=== PATIENT | female | born 1995 | race Caucasian/White ===

== ENCOUNTER 2020-04-02 11:46 | Outpatient (CLI) | payer OTHER ==
[2020-04-02 12:20] VITALS: BP 111/71
[2020-04-02 12:36] LABS: MICROSCOPIC INDICATED
== END 2020-04-02 13:48 | disposition home or self-care (01) ==
LOC: LDOP 11:46
PROVIDERS: ATTEND Obstetrics & Gynecology
DX: O23.40 Unspecified infection of urinary tract in pregnancy, unspecified trimester (principal)
CPT/HCPCS: 81001; 87086; 99211; G0463

== ENCOUNTER 2020-05-04 10:38 | Emergency (ER) | payer OTHER ==
[~2020-05-04] VITALS: Ht 162.6 cm; Wt 67.2 kg
[2020-05-04 11:06] VITALS: BP 114/61
--- NOTE | 2020-05-04 11:20 | NUR ---
BUTT PRESSER: L&D NOTIFIED, SPOKE WITH BRENTON GALLEGOS
--- NOTE | 2020-05-04 12:15 | NUR ---
CALLED L&D, BRENTON GANN TO PUT NOTE IN. WILL UPDATE ERMD
--- NOTE | 2020-05-04 13:19 | NUR ---
TASK RN: Patient/Caregiver given discharge instructions and they have confirmed that they understand the instructions. Patient ambulatory with steady gait.
== END 2020-05-04 13:20 | disposition home or self-care (01) ==
LOC: ED 12:19
DX: O26.892 Other specified pregnancy related conditions, second trimester (principal); M25.511 Pain in right shoulder; Z3A.27 27 weeks gestation of pregnancy
CPT/HCPCS: 99283

== ENCOUNTER 2020-08-03 14:10 | Inpatient (IN) | payer OTHER ==
[~2020-08-03] VITALS: Ht 162.6 cm; Wt 80.2 kg
[2020-08-03 20:26] LABS: BASOPHILS % (AUTO) 1 % (0-1); EOSINOPHILS % (AUTO) 1 % (1-7); LYMPHOCYTES % (AUTO) 16 % (22-44); MEAN CORPUSCULAR HEMOGLOBIN 32.9 pg (27.0-34.8); MEAN CORPUSCULAR HGB CONC 34.1 g/dL (32.4-35.8); MEAN PLATELET VOLUME 8.6 fL (7.4-10.4); MONOCYTES % (AUTO) 6 % (2-9); NEUTROPHILS % (AUTO) 76 % (42-75); PLATELET COUNT 223 x10^3/uL (130-400); RED BLOOD COUNT 3.79 x10^6/uL (3.82-5.3); RED CELL DISTRIBUTION WIDTH 13.7 % (9.6-15.2)
[2020-08-03 20:27] LABS: MD NO
[2020-08-03] MEDS ORDERED: D5%-LACTATED RINGERS 1,000 ML IV SCH (20:30)
[2020-08-03] MEDS ORDERED: ALUMINUM/MAG/SIMETHICONE 30 ML UDC PO PRN (20:30)
[2020-08-03] MEDS ORDERED: SODIUM CITRATE/CITRIC ACID 30 ML UDC PO PRN ×2 (20:30→22:30)
[2020-08-03] MEDS ORDERED: ONDANSETRON 2MG/ML, 2ML IVPush PRN (20:30)
[2020-08-03] MEDS ORDERED: METOCLOPRAMIDE 5 MG/ML, 2ML IVPush PRN (20:30)
[2020-08-03] MEDS ORDERED: FENTANYL PF 100 MCG/2ML IV PRN (20:30)
[2020-08-03] MEDS ORDERED: SODIUM CHLORIDE FLUSH 10ML SYR IVF PRN (20:30)
[2020-08-03] MEDS ORDERED: CALCIUM CARBONATE 500 MG TAB.CHEW PO PRN (20:30)
[2020-08-03] MEDS ORDERED: OXYTOCIN 30U/ 0.9% NaCL 500ML 500 ML IV ONE (20:30)
[2020-08-03] MEDS ORDERED: FENTANYL PF 100 MCG/2ML IVPush PRN (20:30)
[2020-08-03] MEDS ORDERED: TERBUTALINE 1 MG/ML, 1ML IVPush PRN (20:30)
[2020-08-03] MEDS ORDERED: TERBUTALINE 1 MG/ML, 1ML SQ PRN (20:30)
[2020-08-03] MEDS: LACTATED RINGERS 1,000 ML IV SCH (21:00)
[2020-08-03] MEDS ORDERED: OXYTOCIN 30U/ 0.9% NaCL 500ML 500 ML ONE (21:16)
[2020-08-03] MEDS ORDERED: MISOPROSTOL 200 MCG TABLET ONE (21:17)
[2020-08-03] MEDS ORDERED: LIDOCAINE 1%, 20ML ONE (21:17)
[2020-08-03 21:27] VITALS: BP 137/80
[2020-08-03] MEDS ORDERED: MISOPROSTOL 25 MCG TABLET ONE (21:47)
[2020-08-03] MEDS ORDERED: MISOPROSTOL 25 MCG TABLET VG PRN ×2 (22:30)
[2020-08-04] MEDS: LACTATED RINGERS 1,000 ML IV SCH ×5 (03:03→23:50)
[2020-08-04] MEDS ORDERED: FENTANYL PF 100 MCG/2ML ONE (04:46)
[2020-08-04] MEDS ORDERED: FENTANYL/BUPIV./NS/PF 0 ML EPIDCONT ONE (06:36)
[2020-08-04] MEDS ORDERED: BUPIVACAINE 0.25% ONE (06:58)
[2020-08-04] MEDS ORDERED: FENTANYL/BUPIV./NS/PF 250 ML EPIDCONT ONE (06:58)
[2020-08-04] MEDS ORDERED: NALOXONE 0.4 MG/ML, 1ML IVPush PRN (07:30)
[2020-08-04] MEDS ORDERED: DIPHENHYDRAMINE 50 MG/ML, 1ML IVPush PRN (07:30)
[2020-08-04] MEDS ORDERED: LACTATED RINGERS 1,000 ML IVBOLUS PRN (07:30)
[2020-08-04] MEDS ORDERED: LACTATED RINGERS 1,000 ML IV SCH (07:30)
[2020-08-04] MEDS ORDERED: FENTANYL/BUPIV./NS/PF 250 ML EPIDCONT SCH (07:30)
[2020-08-04] MEDS ORDERED: EPHEDRINE 50 MG/ML, 1ML IVPush PRN (07:30)
[2020-08-04] MEDS ORDERED: ONDANSETRON 2MG/ML, 2ML IVPush PRN (07:30)
[2020-08-04] MEDS ORDERED: TERBUTALINE 1 MG/ML, 1ML ONE (11:22)
[2020-08-04] MEDS ORDERED: SODIUM CITRATE/CITRIC ACID 15 ML UDC ONE (11:22)
[2020-08-04] MEDS ORDERED: METOCLOPRAMIDE 5 MG/ML, 2ML ONE (11:22)
[2020-08-04] MEDS ORDERED: LIDOCAINE/MPF 2%-EPI 1:200K, 20 ML ONE (12:14)
[2020-08-04] MEDS ORDERED: CLINDAMYCIN PMX 900MG/50ML 50 ML ONE (12:20)
[2020-08-04] MEDS ORDERED: EPHEDRINE 50 MG/ML, 1ML ONE (13:28)
[2020-08-04] MEDS ORDERED: CALCIUM CARBONATE 500 MG TAB.CHEW PO PRN (13:30)
[2020-08-04] MEDS: OXYTOCIN 30U/ 0.9% NaCL 500ML 500 ML IV SCH ×2 (13:30→23:30)
[2020-08-04] MEDS ORDERED: IBUPROFEN 200 MG TABLET PO PRN (13:30)
[2020-08-04] MEDS ORDERED: OXYcodone IR 5MG TABLET PO PRN ×2 (13:30)
[2020-08-04] MEDS ORDERED: SIMETHICONE 80 MG CHEW TAB PO PRN (13:30)
[2020-08-04] MEDS ORDERED: METHYLERGONOVINE 0.2 MG/ML IM PRN (13:30)
[2020-08-04] MEDS ORDERED: MORPHINE SULFATE 4 MG/ML, 1ML IVPush PRN (13:30)
[2020-08-04] MEDS ORDERED: METOCLOPRAMIDE 5 MG/ML, 2ML IV PRN (13:30)
[2020-08-04] MEDS ORDERED: ONDANSETRON 2MG/ML, 2ML IV PRN (13:30)
[2020-08-04] MEDS ORDERED: MISOPROSTOL 200 MCG TABLET SL PRN (13:30)
[2020-08-04] MEDS ORDERED: DIPH,PERTUSS(ACELL),TET VAC/PF NC IM-VACC PRN (13:30)
[2020-08-04] MEDS ORDERED: OXYcodone 5 MG/5 ML ORAL.SOL UDC ONE (14:48)
[2020-08-04] MEDS ORDERED: OXYcodone ORAL.CONC 20 MG/ML PO PRN (15:00)
[2020-08-04 15:05] VITALS: BP 106/66
[2020-08-04] MEDS: KETOROLAC 30 MG/1 ML IV SCH ×2 (17:33→23:30)
[2020-08-04 20:00] VITALS: BP 111/71
[2020-08-04] MEDS: DOCUSATE 100 MG CAPSULE PO SCH (21:00)
[2020-08-04 22:07] LABS: BASOPHILS % (AUTO) 0 % (0-1); EOSINOPHILS % (AUTO) 0 % (1-7); LYMPHOCYTES % (AUTO) 3 % (22-44); MEAN CORPUSCULAR HEMOGLOBIN 32.8 pg (27.0-34.8); MEAN CORPUSCULAR HGB CONC 33.8 g/dL (32.4-35.8); MEAN PLATELET VOLUME 8.9 fL (7.4-10.4); MONOCYTES % (AUTO) 3 % (2-9); NEUTROPHILS % (AUTO) 94 % (42-75); PLATELET COUNT 194 x10^3/uL (130-400); RED CELL DISTRIBUTION WIDTH 13.7 % (9.6-15.2)
[2020-08-04 22:32] LABS: MD SCAN
[2020-08-05 04:00] VITALS: BP 109/73
[2020-08-05] MEDS: KETOROLAC 30 MG/1 ML IV SCH ×2 (05:30→11:30)
[2020-08-05 07:49] VITALS: BP 102/66
[2020-08-05] MEDS: LACTATED RINGERS 1,000 ML IV SCH ×2 (07:50→09:30)
[2020-08-05] MEDS: DOCUSATE 100 MG CAPSULE PO SCH ×2 (08:07→19:27)
[2020-08-05] MEDS: PRENATAL VIT/IRON/FA 1 EACH TABLET PO SCH (08:07)
[2020-08-05] MEDS: OXYTOCIN 30U/ 0.9% NaCL 500ML 500 ML IV SCH (09:30)
[2020-08-05] MEDS: ACETAMINOPHEN 325 MG TABLET PO PRN ×2 (09:46→19:27)
[2020-08-05] MEDS: IBUPROFEN 800 MG TABLET PO PRN ×2 (09:46→19:27)
[2020-08-05 20:20] VITALS: BP 110/75
[2020-08-06] MEDS: IBUPROFEN 800 MG TABLET PO PRN ×2 (03:19→13:26)
[2020-08-06] MEDS: ACETAMINOPHEN 325 MG TABLET PO PRN ×2 (07:20→13:26)
[2020-08-06] MEDS: DOCUSATE 100 MG CAPSULE PO SCH (07:20)
[2020-08-06] MEDS: PRENATAL VIT/IRON/FA 1 EACH TABLET PO SCH (07:20)
[2020-08-06 07:39] VITALS: BP 113/77
[2020-08-06] MEDS ORDERED: DOCU-131 PO (12:58)
[2020-08-06] MEDS ORDERED: IBUP-1222 PO (12:58)
== END 2020-08-06 13:42 | disposition home or self-care (01) | DRG 788 ==
LOC: LDIP 20:05 → 2NW 08-04 15:54
PROVIDERS: ADMIT Obstetrics & Gynecology; ATTEND Obstetrics & Gynecology
PROC: 10D00Z1 Extraction of Products of Conception, Low, Open Approach (ICD-10-PCS; principal; 2020-08-04)
DX: O69.81X0 Labor and delivery complicated by cord around neck, without compression, not applicable or unspecified (principal); E55.9 Vitamin D deficiency, unspecified; J45.909 Unspecified asthma, uncomplicated; O76 Abnormality in fetal heart rate and rhythm complicating labor and delivery; O99.284 Endocrine, nutritional and metabolic diseases complicating childbirth; O99.52 Diseases of the respiratory system complicating childbirth; Z37.0 Single live birth; Z3A.39 39 weeks gestation of pregnancy; Z80.6 Family history of leukemia; Z82.49 Family history of ischemic heart disease and other diseases of the circulatory system; Z83.3 Family history of diabetes mellitus; Z90.49 Acquired absence of other specified parts of digestive tract; Z20.822 Contact with and (suspected) exposure to COVID-19; Z88.8 Allergy status to other drugs, medicaments and biological substances
CPT/HCPCS: 36415; J7121; 85025; 86592; 86850; 86900; 87635; G0378; J1885; J2405; J3010; J2590; J2765; J3105; J7120